=== PATIENT | male | born 1995 | race Caucasian/White ===

== ENCOUNTER 2017-08-05 19:21 | Emergency (ER) | payer MEDICAID ==
[~2017-08-05] VITALS: Ht 160 cm; Wt 54.4 kg
[2017-08-05 20:25] VITALS: BP 123/84
== END 2017-08-05 22:30 | disposition home or self-care (01) ==
LOC: ER 19:21
DX: S16.1XXA Strain of muscle, fascia and tendon at neck level, initial encounter (principal); S39.012A Strain of muscle, fascia and tendon of lower back, initial encounter; S29.019A Strain of muscle and tendon of unspecified wall of thorax, initial encounter; R51 Headache; V49.59XA Passenger injured in collision with other motor vehicles in traffic accident, initial encounter; Y93.89 Activity, other specified; Y92.488 Other paved roadways as the place of occurrence of the external cause; Y99.8 Other external cause status
CPT/HCPCS: 70450; 71250; 72125; 72128; 72131

== ENCOUNTER 2018-05-12 18:02 | Emergency (ER) | payer SELFPAY ==
[~2018-05-12] VITALS: Ht 160 cm; Wt 47.6 kg
[2018-05-12 18:12] VITALS: BP 151/97
== END 2018-05-12 22:42 | disposition home or self-care (01) ==
LOC: ER 18:02
DX: S93.501A Unspecified sprain of right great toe, initial encounter (principal); F12.10 Cannabis abuse, uncomplicated; W22.8XXA Striking against or struck by other objects, initial encounter; Y93.89 Activity, other specified; Y99.8 Other external cause status; Y92.89 Other specified places as the place of occurrence of the external cause
CPT/HCPCS: 73630

== ENCOUNTER 2020-02-21 11:42 | Emergency (ER) | payer MEDICAID, SELFPAY ==
[~2020-02-21] VITALS: Ht 160 cm; Wt 54.4 kg
[2020-02-21 14:19] VITALS: BP 137/96
== END 2020-02-21 14:21 | disposition home or self-care (01) ==
LOC: ER 11:42
DX: R05 Cough (principal); K21.9 Gastro-esophageal reflux disease without esophagitis; F12.10 Cannabis abuse, uncomplicated; Z20.828 Contact with and (suspected) exposure to other viral communicable diseases
CPT/HCPCS: 71045; 99284; U0003